=== PATIENT | male | born 1975 | race Caucasian/White ===

== ENCOUNTER 2024-09-24 21:59 | Emergency (ER) | payer BC ==
[~2024-09-24] VITALS: Ht 177.8 cm; Wt 70.3 kg
[2024-09-24] MEDS ORDERED: SODIUM CHLORIDE 0.9% 1,000 ML IV ONE ×2 (22:10→23:05)
[2024-09-24 22:32] LABS: BILIRUBIN Negative (Negative); BLOOD Negative (Negative); CLARITY Clear (Clear); COLOR Yellow (Yellow); KETONE Negative (Negative); LEUKO ESTERASE Trace (Negative); NITRITE Negative (Negative); PH 5.5 (4.5-8.0); SPECIFIC GRAVITY <= 1.005 (1.001-1.030); UROBILINOGEN 0.2 E.U./dl (0.0-1.0)
[2024-09-24 22:33] LABS: BASO # 0.1 10*3/uL (0.0-0.1); BASO % 0.7 % (0.0-1.0); EOS # 0.2 10*3/uL (0.0-0.4); EOS % 2.2 % (1.0-4.0); MEAN CELL VOLUME 92.4 fl (80.0-94.0); MEAN CORPUSCULAR HGB 30.9 pg (27.0-31.0); MEAN PLATELET VOLUME 10.2 fl (9.6-12.3); MONO # 0.7 10*3/uL (0.1-1.0); MONO % 7.0 % (3.0-9.0); NEUT # 4.6 10*3/uL (2.3-7.9); NEUT % 48.2 % (47.0-73.0); NUCLEATED RED BLOOD CELL 0.0 % (0.0-0.0); NUCLEATED RED BLOOD CELL 0.0 10*3/uL (0.0-0.0); PLATELET COUNT AUTOMATED 273 10*3/uL (130-400); RED CELL DISTRI WIDTH 14.6 % (0-14.5)
[2024-09-24 22:39] LABS: URINE AMPHETAMINES Negative (1000ng/ml); URINE BARBITURATES Negative (200ng/ml); URINE BENZODIAZEPINES Negative (200ng/ml); URINE CANNABINOIDS (THC) Negative (50ng/ml); URINE COCAINE Negative (300ng/ml); URINE METHADONE Negative (300ng/ml); URINE OPIATES Negative (300ng/ml); URINE PHENCYCLIDINE Negative (25ng/ml)
[2024-09-24 22:47] LABS: BACTERIA 1+; FINE GRANULAR CAST 0-2; RBC 0-2 rbc/hpf (0-2)
[2024-09-24 23:00] LABS: BUN 11 mg/dl (9-23); CPK 124 U/L (34-171); ETHYL ALCOHOL 236.8 mg/dl (<3); SGPT/ALT 17 U/L (5-49)
== END 2024-09-25 00:12 | disposition left against medical advice (07) ==
LOC: ED 21:59
PROVIDERS: Emergency Medicine
DX: G40.909 Epilepsy, unspecified, not intractable, without status epilepticus (principal); F10.129 Alcohol abuse with intoxication, unspecified; M54.6 Pain in thoracic spine; M54.50 Low back pain, unspecified; M79.18 Myalgia, other site; R05.9 Cough, unspecified; R07.89 Other chest pain; R40.4 Transient alteration of awareness; Z88.6 Allergy status to analgesic agent; Z88.5 Allergy status to narcotic agent